=== PATIENT | female | born 1995 | race African-American/Black ===

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

== ENCOUNTER 2017-01-09 06:43 | Emergency (ER) | payer MEDICAID ==
[~2017-01-09] VITALS: Ht 157.5 cm; Wt 66.0 kg
[2017-01-09 06:46] VITALS: BP 122/75
[2017-01-09] MEDS ORDERED: KETOROLAC 30 MG/1 ML ONE (07:12)
[2017-01-09] MEDS ORDERED: DEXAMETHASONE 4 MG/ML, 1ML ONE (07:13)
[2017-01-09] MEDS ORDERED: DEXAMETHASONE 4 MG TABLET ONE (07:19)
[2017-01-09] MEDS ORDERED: ALBU1.25 NEB (07:23)
[2017-01-09] MEDS ORDERED: KETOROLAC 30 MG/1 ML IM ONE (07:30)
[2017-01-09] MEDS ORDERED: DEXAMETHASONE 4 MG/ML, 1ML PO ONE (07:30)
[2017-01-09] MEDS ORDERED: DEXAMETHASONE 4 MG TABLET PO ONE (07:30)
== END 2017-01-09 07:58 | disposition home or self-care (01) ==
LOC: ED 07:26
DX: J02.0 Streptococcal pharyngitis (principal); J45.909 Unspecified asthma, uncomplicated
CPT/HCPCS: 87081; 87147; 87880; 99284